=== PATIENT | male | born 1955 | race Caucasian/White ===

== ENCOUNTER 2024-02-04 14:02 | Emergency (ER) | payer MEDICARE, OTHER, SELFPAY ==
[2024-02-04 14:05] VITALS: BP 117/72
[2024-02-04] MEDS: LET TOPICAL ANESTHETIC GEL 3 ML TOPICAL (15:58)
--- NOTE | 2024-02-04 17:13 | ED.GENMED ---
History of Present Illness
General
Chief Complaint: Fall
Source: patient and spouse
Exam Limitations: none
Time Seen by Provider: 02/04/24 14:29
Nursing documentation reviewed up to this point in time: agreed with
Travel History
Have you had any contact with someone who has COVID-19?: No
Do you have any symptoms of coronavirus? Fever > 100 degrees, chills, cough, shortness of breath, sore throat, loss of taste or smell, muscle aches, or headache?: No
History of Present Illness
History of Present Illness:
68-year-old male past medical history of A-fib currently on Plavix and Eliquis, heart disease hyperlipidemia hypertension presenting to the emergency department after tripping over uneven pavement in a parking lot prior to arrival landed on his
hands and also hit his nose. Did not lose consciousness otherwise feels well does have abrasions to his right knee wrist bilaterally and nasal bridge. Denies numbness weakness neck pain or additional concerns.
Past History
Past History
ED Past Medical History: Arrthythmia, CAD, HTN, Hypercholesterolemia and Valvular disease
ED Past Surgical History: Cardiac and Other (Hernia, prostate removal, ICD placement)
Social History
Tobacco: Non-smoker
Alcohol: Occasional
Drug: None
Personal:
Living: with family
Review of Systems
Review of Systems
Allergies reviewed?: Yes
All Other Systems: ROS reviewed and negative except as documented in HPI and ROS
Phy Exam
Physical Exam
Physical Exam:
GENERAL: Alert , in no apparent distress
EYE: pupils equal and reactive
NECK: Supple, no significant adenopathy.
ENT: Superficial abrasion throughout the nasal bridge roughly 3 cm in length 1 cm in. No foreign body seen also area of abrasion below the left nostril o/p clr, mmm.
CARDIAC: Regular rate and rhythm .
LUNGS: Clear breath sounds bilaterally, no acute respiratory distress, no wheezes/rales/rhonchi
ABDOMEN: Soft, without focal tenderness, no r/g, no cvat
NEUROLOGICAL: Alert and oriented, no focal neuro deficits
SKIN: Superficial abrasions scattered throughout the hands bilaterally and right anterior knee warm and dry, skin intact.
MUSCULOSKELETAL: No edema, well perfused.
PSYCH: Normal and appropriate interaction.
Course
Orders/Labs/Results
Orders:
Orders
02/04/24 14:12
CT Facial Bones W/o Iv Contras Urgent
Comment:
Reason For Exam: fall on eliquis, struck face on hard surface
CT Head W/o Iv Contrast Stat
Comment:
Reason For Exam: fall on eliquis, struck face on hard surface
02/04/24 15:50
Lidocaine/Epinephrine/Tetracai [Let Topical Anesthetic Gel] 3 ml TOPICAL NOW STA
02/04/24 15:55
Lidocaine/Epinephrine/Tetracai [Let Topical Anesthetic Gel] 3 ml .ROUTE .K-MED ONE
Vital Signs
Initial and Last Documented VS:
Initial Vital Signs
Pulse Resp BP Pulse Ox
71 16 117/72 98
02/04/24 14:05 02/04/24 14:05 02/04/24 14:05 02/04/24 14:05
Last Documented Vital Signs
Pulse Resp BP Pulse Ox
71 16 117/72 98
02/04/24 14:05 02/04/24 14:05 02/04/24 14:05 02/04/24 14:05
MDM/Problems Addressed
MDM/Problems Addressed:
5-year-old male presenting to the emergency department today with concerns of a ground-level fall after he got tripped up in a parking lot. Denies loss of consciousness no nausea vomiting no numbness weakness no neck pain CT scan of the head and
face without emergent findings patient did have multiple areas of superficial abrasion that were cleaned thoroughly and covered. Otherwise stable for discharge return precautions given. Up-to-date with tetanus shot.
*Critical Care Note
Total Time (30-74mins, 75-104mins- exclusive of procedures): Not Applicable
ED Attending Note
-
Portions of this chart may have been created with voice recognition software.� Occasional wrong word or��sound alike� substitutions may have occurred due to the inherent limitations of voice recognition software.
Discharge Plan
Departure
Patient Disposition: Home (Routine Discharge)
Date of Disposition: 02/04/24
Time of Disposition: 17:13
Patient with high blood pressure during this ER visit?: No
Condition: Good
Covid-19: Not Applicable
Discharge Problem:
Fall, Abrasion of nose, Abrasion hand
Instructions: Preventing falls in adults, Skin Abrasions (DC)
Prescriptions:
No Action
losartan 50 MG tablet
50 mg PO DAILY
triamterene-hydrochlorothiazid 1 EACH tablet
1 ea PO DAILY
alpha lipoic acid 300 MG capsule
385 mg PO DAILY
acetylcarnitine 500 MG capsule
500 mg PO HS
coQ10 (ubiquinol) 100 MG capsule
100 mg PO QPM
albuterol sulfate [ProAir HFA] 8.5 GM HFA aerosol inhaler
2 puff inhalation [id number] PRN (Reason: sob)
cholecalciferol (vitamin D3) 1,000 UNITS tablet
2,000 units PO QPM
omega 5-mle-wzu-fish oil [Fish Oil] 1 EACH capsule
4,000 mg PO HS
multivitamin with folic acid [Tab-A-Maddie] 1 TABLET tablet
1 tab PO HS
Eliquis 5 MG tablet
5 mg PO BID
Caltrate 600 plus D 1 EACH tablet,chewable
1 tab PO HS
sotalol 80 MG tablet
80 mg PO BID Qty: 180 3RF
nuitfhagzru-grlpvpljx-xgj C-Mn 1 TAB tablet
2 tab PO QPM
clopidogrel 75 MG tablet
75 mg PO DAILY Qty: 90 3RF
nitroglycerin 0.4 MG tablet, sublingual
0.4 mg sublingual [id number] PRN (Reason: chest pain) Qty: 25 2RF
rosuvastatin 20 mg Tablet
20 mg PO DAILY
fluticasone propion-salmeterol [Advair Diskus] 250-50 mcg/dose Blister With Device
1 inh INHALATION BID
aspirin [Aspir-Low] 81 mg Tablet,Delayed Release (Dr/Ec)
81 mg PO DAILY
triamterene-hydrochlorothiazid [Dyazide] 37.5-25 mg Capsule
1 cap PO DAILY
ezetimibe 10 mg Tablet
10 mg PO DAILY
ranolazine [Ranexa] 500 mg Tablet Extended Release 12 Hr
250 mg PO BID
Mucinex
2 tab PO
Referrals:
Emery Mckoy MD [Family Provider] -
Activity Restrictions/Additional Instructions:
You came to the emergency department today after a fall. Fortunately your CT scan of your head and face did not show any emergent findings. You did have multiple areas of abrasions. Please keep the areas clean and covered. Return to the
emergency department any worsening, new or concerning symptoms.
Interventions
Interventions:
*ED COVID-19 Vaccine History Last Done: 02/04/24 14:05
ED-Musculoskeletal Assessment Last Done: 02/04/24 14:24
ED- Neurological Assessment Last Done: 02/04/24 14:23
ED-Skin Assessment Last Done: 02/04/24 14:23
Discharge Date and Time
Print Language: GREEK
== END 2024-02-04 17:35 | disposition home or self-care (01) ==
LOC: EMR 14:02
PROVIDERS: EMERGENCY PHYSICIAN Emergency Medicine; FAMILY PHYSICIAN Family Medicine
DX: S60.812A Abrasion of left wrist, initial encounter (principal); S60.811A Abrasion of right wrist, initial encounter; S00.31XA Abrasion of nose, initial encounter; S80.211A Abrasion, right knee, initial encounter; W19.XXXA Unspecified fall, initial encounter; Z79.01 Long term (current) use of anticoagulants; Z79.02 Long term (current) use of antithrombotics/antiplatelets
CPT/HCPCS: 99284; 70450; 70486

== ENCOUNTER 2025-10-18 06:34 | Day surgery (SDC) | payer MEDICARE, OTHER, SELFPAY | END 2025-10-18 10:08 | disposition home or self-care (01) | LOC: GI 06:34 | PROVIDERS: ATTENDING PHYSICIAN Internal Medicine Gastroenterology; FAMILY PHYSICIAN Family Medicine | DX: Z12.11 Encounter for screening for malignant neoplasm of colon (principal); Z86.0100 Personal history of colon polyps, unspecified; K57.30 Diverticulosis of large intestine without perforation or abscess without bleeding; K63.5 Polyp of colon; D12.5 Benign neoplasm of sigmoid colon; D12.4 Benign neoplasm of descending colon | CPT/HCPCS: 45385; 45380; 88305 ==

== ENCOUNTER → 2025-10-31 07:09 | Outpatient (REF) | payer MEDICARE, OTHER, SELFPAY | LOC: RCS 07:09 | PROVIDERS: ATTENDING PHYSICIAN Internal Medicine Cardiovascular Disease; FAMILY PHYSICIAN Family Medicine | DX: I21.4 Non-ST elevation (NSTEMI) myocardial infarction (principal) | CPT/HCPCS: 93306 ==